=== PATIENT | female | born 1980 | race African-American/Black ===

== ENCOUNTER 2019-05-04 12:54 | Emergency (ER) | payer MEDICAID, OTHER ==
[~2019-05-04] VITALS: Ht 165.1 cm; Wt 101.6 kg
[2019-05-04 13:08] VITALS: BP 129/75
== END 2019-05-04 14:58 | disposition left against medical advice (07) ==
LOC: ER 13:03
DX: M79.605 Pain in left leg (principal); M79.604 Pain in right leg; Z53.21 Procedure and treatment not carried out due to patient leaving prior to being seen by health care provider